=== PATIENT | female | born 2005 | race Two or more races ===

== ENCOUNTER 2025-10-05 21:40 | Emergency (ER) | payer OTHER ==
[~2025-10-05] VITALS: Ht 165.1 cm; Wt 68.0 kg
[2025-10-05] MEDS ORDERED: BENZONATATE 100 MG CAPSULE PO ONE (23:45)
[2025-10-05] MEDS ORDERED: CEFTRIAXONE SODIUM 1,000 MG VIAL IM ONE (23:45)
[2025-10-05] MEDS ORDERED: CETIRIZINE HCL 5 MG/5 ML ML PO ONE (23:45)
[2025-10-06 01:44] LABS: BASO % 1.0 % (0.1-1.2); EOS # 0.10 (0.04-0.54); EOS % 2.0 % (0.7-7.0); LYMPH # 1.69 (1.18-3.74); LYMPH % 34.3 % (19.3-53.1); MEAN PLATELET VOLUME 10.00 fl (9.4-12.4); MONO # 0.42 (0.24-0.82); MONO % 8.5 % (4.7-12.5); NEUT # 2.67 (1.56-6.13); NEUT % 54.2 % (34.0-71.1); RED CELL DISTRIBUTION WIDTH 12.8 % (11.6-14.4)
[2025-10-06 03:04] LABS: COVID-19 AG NEGATIVE (NEGATIVE)
[2025-10-06] MEDS ORDERED: GILPHEX TR 3901 EACH PO (03:11)
== END 2025-10-06 03:22 | disposition home or self-care (01) ==
LOC: ER 21:41 → EMR PED 22:30
PROVIDERS: General Practice
DX: J00 Acute nasopharyngitis [common cold] (principal); Z20.822 Contact with and (suspected) exposure to COVID-19